=== PATIENT | female | born 1975 | race Caucasian/White ===

== ENCOUNTER → 2016-12-29 | Outpatient (CLI) | payer OTHER | LOC: MAMO 12-27 07:40 | DX: R07.9 Chest pain, unspecified (principal); R42 Dizziness and giddiness; R06.00 Dyspnea, unspecified; Z72.0 Tobacco use | CPT/HCPCS: ECHO; 93306 ==

== ENCOUNTER 2021-01-06 10:30 | Emergency (ER) | payer OTHER ==
[~2021-01-06 10:30] MED LIST: CENTANY30 GM TP; ZOFRAN4 MG PO
[2021-01-06 10:59] LABS: HEMOGLOBIN 7.4 gm/dl (12.3-15.3); RED BLOOD COUNT 3.84 M/UL (4.00-5.10); WHITE BLOOD COUNT 9.1 K/UL (4.5-11.0)
[2021-01-06 11:23] LABS: BUN/CREATININE RATIO 18 (0-10)
[2021-01-06] MEDS ORDERED: FERROUS SULFAT325 MG PO (13:24)
== END 2021-01-06 14:45 | disposition home or self-care (01) ==
LOC: ER1 10:30
PROVIDERS: Emergency Medicine
DX: D64.9 Anemia, unspecified (principal); Z87.11 Personal history of peptic ulcer disease
CPT/HCPCS: 80053; 81001; 82272; 82550; 82553; 82607; 82728; 82746; 83540; 83550; 83874; 84484; 84703; 85025; 85045; 85610; 85730; 86850; 86900; 86901; 99284

== ENCOUNTER 2021-04-01 13:39 | Emergency (ER) | payer OTHER ==
[~2021-04-01 13:39] MED LIST changes: +FERROUS SULFAT325 MG PO
[2021-04-01 15:03] LABS: RED BLOOD COUNT 3.64 M/UL (4.00-5.10); WHITE BLOOD COUNT 8.8 K/UL (4.5-11.0)
[2021-04-01 15:10] LABS: HEMOGLOBIN 6.9 gm/dl (12.3-15.3)
[2021-04-01 15:35] LABS: BUN/CREATININE RATIO 17 (0-10)
== END 2021-04-01 20:09 | disposition home or self-care (01) ==
LOC: ER1 13:39
DX: D64.9 Anemia, unspecified (principal); Z88.0 Allergy status to penicillin
CPT/HCPCS: 36430; 80053; 81001; 82272; 85025; 85045; 85652; 86140; 86850; 86900; 86901; 86920; 87086; 99284; J7030; J7050; P9016

== ENCOUNTER → 2021-04-21 | Day surgery (SDC) | payer OTHER ==
[~2021-04-21] MED LIST changes: +CARAFATE1 GM/10 ML PO; +NEURONTIN800 MG PO; +PROTONIX 40 MG40 MG GT; +SUBOXONE 8 MG-1 EACH SL; +ZOLOFT100 MG PO
== END | disposition home or self-care (01) ==
LOC: OR 06:51
DX: K29.50 Unspecified chronic gastritis without bleeding (principal); K25.7 Chronic gastric ulcer without hemorrhage or perforation; K26.7 Chronic duodenal ulcer without hemorrhage or perforation; K57.10 Diverticulosis of small intestine without perforation or abscess without bleeding; F17.210 Nicotine dependence, cigarettes, uncomplicated; K59.03 Drug induced constipation; K21.9 Gastro-esophageal reflux disease without esophagitis; M79.7 Fibromyalgia; Z88.0 Allergy status to penicillin; Z90.49 Acquired absence of other specified parts of digestive tract; D50.9 Iron deficiency anemia, unspecified; L01.00 Impetigo, unspecified; Z20.822 Contact with and (suspected) exposure to COVID-19; B96.81 Helicobacter pylori [H. pylori] as the cause of diseases classified elsewhere; T18.2XXA Foreign body in stomach, initial encounter
CPT/HCPCS: 84703; J2704; J3010; J7040

== ENCOUNTER → 2021-05-24 | Outpatient (CLI) | payer OTHER ==
[~2021-05-24] MED LIST changes: +FOLIC ACID 1 MG1 MG PO; +NEURONTIN300 MG PO; -NEURONTIN800 MG PO; +SULFAMETHOXAZO1 EACH PO; +VENOFER100 MG/5 M IV
[2021-05-24 16:56] LABS: HEMOGLOBIN 7.4 gm/dl (12.3-15.3)
== END ==
LOC: LAB 15:14
PROVIDERS: Internal Medicine Hematology & Oncology
DX: D64.9 Anemia, unspecified (principal)
CPT/HCPCS: 85014; 85018; 86850; 86900; 86901; 86920

== ENCOUNTER → 2021-05-25 | Outpatient (CLI) | payer OTHER | LOC: OPSV 08:38 | DX: D64.9 Anemia, unspecified (principal) | CPT/HCPCS: G0463 ==

== ENCOUNTER 2021-06-02 13:49 | Outpatient (CLI) | payer OTHER ==
[~2021-06-02] VITALS: Ht 160 cm; Wt 56.7 kg
[~2021-06-02 13:49] MED LIST changes: -FOLIC ACID 1 MG1 MG PO; -SULFAMETHOXAZO1 EACH PO; -VENOFER100 MG/5 M IV
[2021-06-02] MEDS ORDERED: FOLIC ACID 1 MG1 MG PO (17:16)
[2021-06-02] MEDS ORDERED: SULFAMETHOXAZO1 EACH PO (17:16)
[2021-06-02] MEDS ORDERED: CARAFATE1 GM/10 ML PO (17:17)
[2021-06-02] MEDS ORDERED: VENOFER100 MG/5 M IV (17:19)
== END 2021-06-02 21:35 | disposition home or self-care (01) ==
LOC: OPSV 13:49 → MED SURG 4 15:51 → OPSV 21:35
DX: D64.9 Anemia, unspecified (principal)
CPT/HCPCS: 36430; 96375; J1940; J7050

== ENCOUNTER 2021-12-24 18:17 | Inpatient (IN) | payer OTHER ==
[~2021-12-24] VITALS: Ht 160 cm; Wt 54.4 kg
[~2021-12-24 18:17] MED LIST changes: +BUPRENORPHIN-N1 EACH SL; +FOLIC ACID 1 MG1 MG PO; -SUBOXONE 8 MG-1 EACH SL; +SULFAMETHOXAZO1 EACH PO; +VENOFER100 MG/5 M IV
[2021-12-24 19:20] LABS: HEMOGLOBIN 11.4 gm/dl (12.3-15.3); RED BLOOD COUNT 3.61 M/UL (4.00-5.10); WHITE BLOOD COUNT 8.9 K/UL (4.5-11.0)
[2021-12-24 21:27] LABS: BUN/CREATININE RATIO 10 (0-10)
[2021-12-25] MEDS ORDERED: BACTRIM DS TAB1 EACH PO (09:46)
[2021-12-25] MEDS ORDERED: MULTIVITAMIN1 EACH PO (09:47)
[2021-12-25] MEDS ORDERED: OMEPRAZOLE20 M2 PO (09:48)
[2021-12-25] MEDS ORDERED: ANTACID ULTRA400 MG PO (09:48)
[2021-12-27 04:41] LABS: HEMOGLOBIN 10.3 gm/dl (12.3-15.3); RED BLOOD COUNT 3.28 M/UL (4.00-5.10); WHITE BLOOD COUNT 9.5 K/UL (4.5-11.0)
[2021-12-28 06:28] LABS: HEMOGLOBIN 10.3 gm/dl (12.3-15.3); RED BLOOD COUNT 3.26 M/UL (4.00-5.10); WHITE BLOOD COUNT 9.3 K/UL (4.5-11.0)
[2021-12-28 07:18] LABS: BUN/CREATININE RATIO 10 (0-10)
[2021-12-28 08:14] LABS: ANTISTREPTOLYSIN O AB 67.6 IU/mL (0.0-200.0); COMPLEMENT C3, SERUM 155 mg/dL (82-167); COMPLEMENT C4, SERUM 31 mg/dL (12-38)
[2021-12-28 09:14] LABS: ALBUMIN 2.8 g/dL (2.9-4.4); ALPHA-1-GLOBULIN 0.4 g/dL (0.0-0.4); BETA GLOBULIN 0.9 g/dL (0.7-1.3); GAMMA GLOBULIN 0.7 g/dL (0.4-1.8); GLOBULIN, TOTAL 3.1 g/dL (2.2-3.9); IMMUNOGLOBULIN A, QN, SERUM 187 mg/dL (87-352); IMMUNOGLOBULIN G, QN, SERUM 814 mg/dL (586-1602); IMMUNOGLOBULIN M, QN, SERUM 47 mg/dL (26-217); M-SPIKE Not Observed g/dL (Not Observed); PROTEIN, TOTAL, SERUM 5.9 g/dL (6.0-8.5)
[2021-12-28 12:14] LABS: ANTI-DSDNA ANTIBODIES <1 IU/mL (0-9)
[2021-12-28 13:14] LABS: HBSAG SCREEN Negative (Negative); HCV AB <0.1 (0.0-0.9); HEP A AB, IGM Negative (Negative); HEP B CORE AB, TOT Negative (Negative)
[2021-12-28 16:11] LABS: ATYPICAL PANCA <1:20 titer (Neg:<1:20); CYTOPLASMIC (C-ANCA) <1:20 titer (Neg:<1:20); PERINUCLEAR (P-ANCA) <1:20 titer (Neg:<1:20)
[2021-12-29 04:20] LABS: HEMOGLOBIN 9.7 gm/dl (12.3-15.3); RED BLOOD COUNT 3.07 M/UL (4.00-5.10); WHITE BLOOD COUNT 9.5 K/UL (4.5-11.0)
[2021-12-29] MEDS ORDERED: OMNICEF 300 MG300 MG PO (18:42)
[2021-12-29] MEDS ORDERED: NICOTINE PATCH1 EAC2 TOP (18:42)
[2021-12-29] MEDS ORDERED: CATAPRES 0.1MG0.1 MG PO (18:42)
[2021-12-29] MEDS ORDERED: PROTONIX 40 MG40 M1 PO (18:42)
== END 2021-12-29 19:30 | disposition home or self-care (01) | DRG 640 ==
LOC: ER1 18:17 → M/S 12-25 00:57 → CDU 12-25 00:57 → M/S 12-25 13:06
PROVIDERS: Family Medicine; Internal Medicine; Internal Medicine Infectious Disease; Internal Medicine Nephrology; Physician Assistant; ADMIT Internal Medicine
DX: E83.52 Hypercalcemia (principal); G92.9 Unspecified toxic encephalopathy; N17.0 Acute kidney failure with tubular necrosis; F11.20 Opioid dependence, uncomplicated; Z20.822 Contact with and (suspected) exposure to COVID-19; E44.0 Moderate protein-calorie malnutrition; E87.3 Alkalosis; E87.1 Hypo-osmolality and hyponatremia; F19.10 Other psychoactive substance abuse, uncomplicated; T40.2X5A Adverse effect of other opioids, initial encounter; F17.210 Nicotine dependence, cigarettes, uncomplicated; J44.9 Chronic obstructive pulmonary disease, unspecified; D64.9 Anemia, unspecified; E86.0 Dehydration; R10.13 Epigastric pain; M06.9 Rheumatoid arthritis, unspecified; G56.03 Carpal tunnel syndrome, bilateral upper limbs; T42.6X5A Adverse effect of other antiepileptic and sedative-hypnotic drugs, initial encounter; E87.6 Hypokalemia; Z90.49 Acquired absence of other specified parts of digestive tract; Z83.3 Family history of diabetes mellitus; Z82.49 Family history of ischemic heart disease and other diseases of the circulatory system; Z88.0 Allergy status to penicillin; Z87.11 Personal history of peptic ulcer disease; Z71.6 Tobacco abuse counseling
CPT/HCPCS: 36415; 71045; 71250; 77075; 80048; 80053; 80307; 81001; 82140; 82330; 82397; 82436; 82550; 82553; 82570; 82746; 82784; 83520; 83615; 83735; 83883; 83970; 84100; 84133; 84155; 84156; 84165; 84300; 84439; 84443; 84484; 85025; 86038; 86060; 86140; 86160; 86162; 86225; 86256; 86334; 86704; 86706; 86708; 86709; 86803; 87040; 87340; 93005; 96365; 96376; 99285; J0692; J0696; J1650; J2405; J2430; J3480; J7030; P9047

== ENCOUNTER → 2022-02-15 | Outpatient (CLI) | payer OTHER ==
[~2022-02-15] MED LIST changes: +ANTACID ULTRA400 MG PO; +BACTRIM DS TAB1 EACH PO; +CATAPRES 0.1MG0.1 MG PO; +MULTIVITAMIN1 EACH PO; +NICOTINE PATCH1 EAC2 TOP; +OMEPRAZOLE20 M2 PO; +OMNICEF 300 MG300 MG PO; +PROTONIX 40 MG40 M1 PO
[2022-02-15 09:09] LABS: BUN/CREATININE RATIO 15 (0-10)
== END ==
LOC: LAB 07:15
PROVIDERS: Internal Medicine Nephrology
DX: N17.9 Acute kidney failure, unspecified (principal); E83.52 Hypercalcemia
CPT/HCPCS: 36415; 80053; 82330; 82570; 84156

== ENCOUNTER 2022-02-22 14:39 | Emergency (ER) | payer OTHER | END 2022-02-22 15:48 | disposition left against medical advice (07) | LOC: ER1 14:39 | DX: Z53.21 Procedure and treatment not carried out due to patient leaving prior to being seen by health care provider (principal) ==